=== PATIENT | male | born 1960 | race Two or more races ===

== ENCOUNTER 2023-02-09 21:05 | Emergency (ER) | payer SELFPAY ==
[~2023-02-09] VITALS: Ht 165.1 cm; Wt 130.0 kg
[2023-02-09 21:10] VITALS: BP 135/74; PULSE 97; RESP 70; TEMP 98.4; O2SAT 16
== END 2023-02-10 03:47 | disposition home or self-care (01) ==
LOC: ER 21:05
DX: R05.9 Cough, unspecified (principal)
CPT/HCPCS: 71045; 87426; 99284